=== PATIENT | female | born 2005 | race Caucasian/White ===

== ENCOUNTER 2023-09-21 20:31 | Observation (INO) | payer OTHER ==
[~2023-09-21] VITALS: Ht 165.1 cm; Wt 76.4 kg
[2023-09-21 21:00] VITALS: BP_SYST 117
[2023-09-21 21:09] LABS: BASO # 0.1 K/mm3 (0.0-0.2); BASO % 0.3 % (0.0-2.0); EOS % 0.1 % (0.0-4.0); GRAN # 11.6 K/mm3 (1.4-6.5); GRAN % 78.5 % (42.2-75.2); HEMATOCRIT 40.9 % (35.0-45.0); HEMOGLOBIN 14.2 g/dl (12.0-15.0); LYMPH # 2.2 K/mm3 (1.2-3.4); LYMPH % 15.1 % (20.0-51.0); MEAN CELL VOLUME 85 fl (80.0-95.0); MEAN CORPUSCULAR HEMOGLOBIN 30 pg (26-32); MEAN CORPUSCULAR HGB CONC 35 g/dl (33.0-37.0); MEAN PLATELET VOLUME 9.6 fl (7.4-10.4); MONO # 0.8 K/mm3 (0.1-0.6); MONO % 5.6 % (1.7-9.3); PLATELET COUNT 313 K/mm3 (130-400); RED BLOOD COUNT 4.82 M/mm3 (4.10-5.30); REDCELL DISTRIBUTION WIDTH-CV 12.5 % (11.5-14.5)
[2023-09-21 21:26] LABS: BILIRUBIN,TOTAL 1.1 mg/dL (0.2-1.2); C-REACTIVE PROTEIN 25.96 mg/dL (0.00-0.50); CALCIUM 9.8 mg/dL (8.4-10.2); CREATININE, serum 0.85 mg/dL (0.57-1.11); POTASSIUM 3.7 mmol/L (3.5-4.5); TOTAL PROTEIN 8.5 gm/dL (6.2-8.1)
[2023-09-21] MEDS ORDERED: BUSPAR DIVIDOSE15 MG PO (22:54)
[2023-09-21] MEDS ORDERED: NORTREL 35 MCG-1 TA1 (22:54)
--- NOTE | 2023-09-21 23:20 | NUR ---
PT ADMITTED FROM ED PER W/C TO ROOM 331. PT IS ALERT AND ORIENTED X4. BOYFRIEND AT BEDSIDE. HAS INT TO RAC, FLUSHES WELL. PT AWARE SHE IS NPO AND ALSO NEEDING A UA. ADMISSION QUESTIONS INITIATED.
[2023-09-21 23:51] VITALS: BP 106/69; PULSE 85; TEMP 98.3
[2023-09-22] VITALS (14 sets, daily range): BP systolic 100–113; BP diastolic 58–72; PULSE 75–96; TEMP 98.5–100
--- NOTE | 2023-09-22 | NUR ---
IVF INITIATED TO RAC, INFUSING WITHOUT REDNESS OR SWELLING. REPORTS DIFFUSE LOWER ABD PAIN, BOWEL SOUNDS NOTED. DENIES NAUSEA AT THIS TIME. REFUSES PAIN MEDS, RATES PAIN 5/10. ORIENTED TO ROOM AND BED CONTROLS.
--- NOTE | 2023-09-22 04:00 | NUR ---
PT RESTING QUIETLY, NO REQUEST FOR PAIN MEDS.
--- NOTE | 2023-09-22 06:15 | NUR ---
UA OBTAINED AND SENT TO LAB.
[2023-09-22 06:25] LABS: COLLECTION METHOD CLEAN CATCH
[2023-09-22 06:39] LABS: URINE APPEARANCE Clear (CLEAR/HAZY); URINE COLOR Amber (YELLOW); URINE PROTEIN(semi-quant) 2+ (NEGATIVE)
[2023-09-22 06:40] LABS: URINE BACTERIA Rare /hpf (NONE SEEN); URINE BLOOD Negative (NEGATIVE); URINE GLUCOSE Negative (NEGATIVE); URINE KETONE 1+ (NEGATIVE); URINE NITRATE Negative (NEGATIVE); URINE RBC 0-2 /hpf (0-2); URINE UROBILINOGEN 0.2 E.U/dL (0.2-1.0)
--- NOTE | 2023-09-22 08:15 | NUR ---
PATIENT ALERT AND ORIENTED X4. VSS. PATIENT HERE FOR APPENDICITIS. PATIENT REPORTS MILD PAIN, DENIES NEED FOR PAIN MEDICATION. IV TO RIGHT AC WITH ZOSYN RUNNING. ASSESSMENT PERFORMED. NO FURTHER NEEDS. PATIENT AWARE OF POSSIBLE SURGERY TODAY AND NPO STATUS. WAITING ON MOM TO ARRIVE TO DISCUSS POSSIBLE SURGERY. CALL LIGHT IN REACH.
--- NOTE | 2023-09-22 09:57 | NUR ---
Initial visit; Patient and her mom thanked [facility] for inquiring as to what brought her to the hospital. Gina stated that she has appendicitis. [facility] offered Spiritual Care and Gina was pleased to have [facility] keep her in her prayers.
--- NOTE | 2023-09-22 11:01 | NUR ---
hog worker met with Patient and her Mother at bedside to conduct Care Managment Assessment and discuss discharge planning. Patient lives in [place], [place] with three room mates and reports that her Mother, Lashell Virk is her best familial POC. Patient does not have DPOA[facility] on file, SW provided for at Patient's request. Patient reports to be established with Tosin Melvin out of [facility] and is established with [facility] for insurance. Patient requests discharge medications be sent to [facility]. Patient reports no concerns with ADL/IADLs prior to admission. Patient is anticipated to discharge home when medically ready.
--- NOTE | 2023-09-22 13:45 | NUR ---
PATIENT OFF OF FLOOR FOR SURGERY
[2023-09-22] MEDS ORDERED: NORCO 325 MG-51 TAB PO (13:54)
--- NOTE | 2023-09-22 16:09 | NUR ---
PATIENT BACK TO FLOOR AT APPROXIMATELY 1540. POST OP VITALS RUNNING. PATIENT REPORTS MILD PAIN, DENIES NEED FOR ANY PAIN MEDICATION. PATIENT TOLERATING PO. NO FURTHER NEEDS.
--- NOTE | 2023-09-22 17:38 | NUR ---
PATIENT TOLERATING PO. POST OP VITALS WNL. PATIENT REPORTS MILD PAIN.
--- NOTE | 2023-09-22 17:39 | NUR ---
DISCHARGE INSTRUCTIONS PROVIDED. PATIENT EDUCATION GIVEN. IV DC'D. MEDICATIONS REVIEWED. PATIENT DENIES ANY QUESTIONS OR CONCERNS.
--- NOTE | 2023-09-22 17:50 | NUR ---
PATIENT ESCORTED OUT VIA WHEELCHAIR
== END 2023-09-22 17:51 | disposition home or self-care (01) ==
LOC: COL.ER 20:31 → SURG 22:49
PROVIDERS: Emergency Medicine; ADMIT Surgery
DX: K35.80 Unspecified acute appendicitis (principal)
CPT/HCPCS: G0378; J0330; J1100; J1885; J2270; J2405; J2543; J2704; J3010; J7030; J7120; Q9967